=== PATIENT | female | born 2000 | race Caucasian/White ===

== ENCOUNTER 2019-05-24 15:20 | Emergency (ER) | payer BC ==
--- NOTE | 2019-05-24 16:11 | EDM.PDOC ---
ED HPI GENERAL MEDICAL PROBLEM - General Chief Complaint: Chest Pain Stated Complaint: CHEST PAIN Time Seen by Provider: 05/24/19 15:30 Source of Information: Reports: Patient History Limitations: Reports: No Limitations - History of Present Illness INITIAL COMMENTS - FREE TEXT/NARRATIVE: Patient presented to the ED because of brief episode of chest pain over the left .anterior chest wall. The pain is sharp and reproducible. There is no associated dyspnea,N/V or diaphoresis. Treatments RN IMAGING: Reports: Acetaminophen, Other (see below) Other Treatments RN IMAGING: took tylenol two days ago Upper Mid-Anterior Chest Pain Score (Numeric/FACES): 6 - Related Data Allergies Allergy/AdvReac Type Severity Reaction Status Date / Time No Known Allergies Allergy Verified 05/24/19 15:23 Home Meds: Home Meds Norelgestromin/Ethin.Estradiol [Xulane Patch] WEEKLY 05/24/19 [History] Past Medical History - Past Health History Medical/Surgical History: Denies Medical/Surgical History ED ROS GENERAL - Review of Systems Review Of Systems: See Below Constitutional: Reports: No Symptoms HEENT: Reports: No Symptoms Respiratory: Reports: No Symptoms Cardiovascular: Reports: Chest Pain Endocrine: Reports: No Symptoms GI/Abdominal: Reports: No Symptoms : Reports: No Symptoms Musculoskeletal: Reports: No Symptoms Skin: Reports: No Symptoms Neurological: Reports: No Symptoms ED EXAM, GENERAL - Physical Exam Exam: See Below Exam Limited By: No Limitations General Appearance: Alert, No Apparent Distress Ears: Normal External Exam Nose: Normal Inspection, Normal Mucosa, No Blood Throat/Mouth: Normal Inspection, Normal Lips, Normal Teeth Head: Atraumatic, Normocephalic Neck: Normal Inspection, Supple, Non-Tender Respiratory/Chest: No Respiratory Distress, Lungs Clear, Normal Breath Sounds, No Accessory Muscle Use, Chest Non-Tender Cardiovascular: Normal Peripheral Pulses, Regular Rate, Rhythm, No Edema, No JVD , No Murmur GI/Abdominal: Normal Bowel Sounds, Soft, Non-Tender, No Organomegaly Back Exam: Normal Inspection, Full Range of Motion Course - Vital Signs Text/Narrative:: Labs/EKG was discussed with patient and verbalized full understanding EKG-NSR Trop-neg D-Dimer-neg Last Recorded V/S: Last Vital Signs Temp 36.7 C 05/24/19 15:21 Pulse 118 H 05/24/19 15:21 Resp 16 05/24/19 15:21 BP 142/91 H 05/24/19 15:21 Pulse Ox 95 05/24/19 15:21 - Orders/Labs/Meds Orders: Active Orders 24 hr Category Date Time Status EKG Documentation Completion [RC] ASDIRECTED Care 05/24/19 15:34 Active EKG 12 Lead [EK] Routine Ther 05/24/19 15:34 Ordered Labs: Laboratory Tests 05/24/19 05/24/19 05/24/19 Range/Units 15:38 15:38 15:38 WBC 9.4 (4.5-12.0) X10-3/uL RBC 4.87 (3.23-5.20) x10(6)uL Hgb 12.4 (11.5-15.5) g/dL Hct 37.0 (30.0-51.3) % MCV 76.0 L (80-96) fL MCH 25.5 L (27.7-33.6) pg MCHC 33.5 (32.2-35.4) g/dL RDW 13.8 (11.5-15.5) % Plt Count 474 H (125-369) X10(3)uL MPV 7.3 L (7.4-10.4) fL Neut % (Auto) 63.9 (46-82) % Lymph % (Auto) 28.5 (13-37) % Hawkins % (Auto) 5.6 (4-12) % Eos % (Auto) 1 (1.0-5.0) % Baso % (Auto) 1 (0-2) % Neut # (Auto) 6.0 (1.6-8.3) # Lymph # (Auto) 2.7 (0.6-5.0) # Hawkins # (Auto) 0.5 (0.0-1.3) # Eos # (Auto) 0.1 (0.0-0.8) # Baso # (Auto) 0.1 (0.0-0.2) # D-Dimer, Quantitative 0.45 (0.0-0.59) mg/LFEU Sodium 141 (135-145) mmol/L Potassium 4.2 (3.5-5.3) mmol/L Chloride 104 (100-110) mmol/L Carbon Dioxide 25 (21-32) mmol/L BUN 10 (7-18) mg/dL Creatinine 0.8 (0.55-1.02) mg/dL Est Cr Clr Drug Dosing TNP Estimated GFR (MDRD) > 60 (>60) BUN/Creatinine Ratio 12.5 (9-20) Glucose 109 (80-116) mg/dL Calcium 9.5 (8.6-10.2) mg/dL Departure - Departure Time of Disposition: 16:15 Disposition: Home, Self-Care 01 Condition: Good Clinical Impression: Atypical chest pain Instructions: Nonspecific Chest Pain, Adult Referrals: PCP,Not In Area [Primary Care Provider] - Forms: ED Department Discharge Additional Instructions: please read discharge instructions on atypical chest pain pr chest wall pain take aleve(2 tablets) twice daily for 7 days follow up as needed Sepsis Event Note - Evaluation Sepsis Screening Result: No Definite Risk - Focused Exam Vital Signs: Vital Signs Temp Pulse Resp BP Pulse Ox 05/24/19 15:21 36.7 C 118 H 16 142/91 H 95 Date Exam was Performed: 05/24/19 Time Exam was Performed: 23:16 - My Orders Last 24 Hours: My Active Orders 05/24/19 15:34 EKG Documentation Completion [RC] ASDIRECTED EKG 12 Lead [EK] Routine - Assessment/Plan Last 24 Hours: My Active Orders 05/24/19 15:34 EKG Documentation Completion [RC] ASDIRECTED EKG 12 Lead [EK] Routine
== END 2019-05-24 16:40 | disposition home or self-care (01) ==
LOC: FB.ED 15:20
DX: R07.89 Other chest pain (principal)
CPT/HCPCS: 36415; 80048; 85025; 85379; 93005; 99285-25